=== PATIENT | female | born 1945 | race Hispanic/Latino ===

== ENCOUNTER 2023-12-24 06:25 | Inpatient (IN) | payer MEDICARE ==
[2023-12-19 10:42] VITALS: BMI 29.9
[2023-12-24] MEDS ORDERED: Lidocaine 4% Topical Sol 50 ML BOT ONE (09:32)
[2023-12-24] MEDS ORDERED: AFRIN NASAL MIST 15 ML BOT ONE (09:32)
[2023-12-24] MEDS ORDERED: fentaNYL 50 mcg/mL 1 mL Vial ONE ×2 (09:36→11:27)
[2023-12-24] MEDS ORDERED: Dexamethasone 20 MG/5 ML VIAL ONE (09:36)
[2023-12-24] MEDS ORDERED: Rocuronium Bromide 10 MG/ML (10ML VIAL) ONE (09:36)
[2023-12-24] MEDS ORDERED: SUGAMMADEX SODIUM 200 MG/2 ML VIAL ONE (09:36)
[2023-12-24] MEDS ORDERED: Lidocaine 1% PF 5 ML VIAL ONE (09:36)
[2023-12-24] MEDS ORDERED: PROPOFOL 20 ML ONE (09:36)
[2023-12-24] MEDS ORDERED: Ondansetron PF 4 MG/2 ML Vial ONE (09:36)
[2023-12-24] MEDS ORDERED: EPINEPHrine 1 MG/ML VIAL ONE (09:55)
[2023-12-24] MEDS ORDERED: Vasopressin 20 UNITS/ML VIAL ONE (10:09)
[2023-12-24] MEDS ORDERED: Triamcinolone 40 MG/ML VIAL ONE (10:24)
[2023-12-24] MEDS ORDERED: Insulin Regular, Human 100 UNIT/ML 10 ML VIAL ONE (12:09)
[2023-12-24] MEDS ORDERED: Acetaminophen 325 MG TAB PO PRN (13:30)
[2023-12-24] MEDS ORDERED: traMADol HCl 50 MG TAB PO PRN (13:30)
[2023-12-24] MEDS ORDERED: Ondansetron PF 4 MG/2 ML Vial IVP PRN (13:30)
[2023-12-24] MEDS ORDERED: Senokot S 8.6-50 MG TAB PO PRN (13:30)
[2023-12-24] MEDS ORDERED: Guaifenesin DM 100-10/5 ML UDCUP PO PRN (13:30)
[2023-12-24] MEDS ORDERED: Glucagon 1 MG/ML KIT IM PRN (13:32)
[2023-12-24] MEDS ORDERED: Dextrose 5% in Water 1,000 ML IV PRN (13:32)
[2023-12-24] MEDS ORDERED: Sodium Chloride 0.9% 500 ML IV SCH (13:45)
[2023-12-24] MEDS ORDERED: Ipratropium/Albuterol 3 ML NEB NEB PRN (13:48)
[2023-12-24] MEDS: Morphine 2 MG/ML VIAL SLOW IVP PRN (14:02)
[2023-12-24] MEDS: Insulin Regular, Human 100 UNIT/ML 10 ML VIAL SC PRN (17:36)
[2023-12-24] MEDS: Lantus 1000 UNITS/10 ML VIAL SC SCH (21:15)
[2023-12-24] MEDS: Simvastatin 10 MG TAB PO SCH (21:19)
[2023-12-24] MEDS: Famotidine 20 MG TAB PO SCH (21:19)
[2023-12-24] MEDS: metFORMIN 500 MG TAB PO SCH (21:20)
[2023-12-25 04:16] LABS: Anion Gap 19 mmol/L (10-20); BUN (Urea Nitrogen) 61 mg/dL (9.8-20.1); Calc. Creatinine Clearance 24 mL/min (70-130); Calcium 9.2 mg/dL (7.8-10.44); Carbon Dioxide 24 mmol/L (23-31); Chloride 95 mmol/L (98-107); Estimated GFR 23; Glucose 222 mg/dL (83-110); Potassium 4.7 mmol/L (3.5-5.1); Sodium 133 mmol/L (136-145)
[2023-12-25 04:20] LABS: Hematocrit 41.1 % (34.9-44.5); Hemoglobin 12.8 g/dL (12.0-15.5); MDiff Complete? YES; Mean Corpuscular HGB CONC 31.1 g/dL (32.0-36.0); Mean Corpuscular Hemoglobin 26.2 pg (27.0-33.0); Mean Corpuscular Volume 84.2 fL (81.6-98.3); Mean Platelet Volume 10.1 fL (7.4-10.4); Platelet Count 308 10x3/uL (150-450); RBC Distribution Width 18.2 % (11.5-14.5); Red Blood Cell (RBC) Count 4.88 10x6/uL (3.90-5.03); White Blood Cell (WBC) Count 21.5 10x3/uL (3.5-10.5)
[2023-12-25 05:40] LABS: Band 10 % (5-11); Lymphocytes 11 % (21-51); Monocytes 8 % (0-10); Neutrophil 71 % (42-75)
[2023-12-25 05:43] LABS: Anisocytosis SLIGHT = 6-15 cells (100X) (0-5/hpf); Platelet Adequacy Comment Appears Adequate
[2023-12-25] MEDS: Sodium Chloride 0.9% 1,000 ML IV SCH ×2 (07:30→10:02)
[2023-12-25] MEDS ORDERED: Spironolactone 25 MG TAB PO SCH (09:00)
[2023-12-25] MEDS ORDERED: Losartan 50 MG TAB PO SCH (09:00)
[2023-12-25] MEDS: Alogliptin 25 MG TAB PO SCH (09:01)
[2023-12-25] MEDS: Famotidine 20 MG TAB PO SCH (09:02)
[2023-12-25] MEDS: Escitalopram Oxalate 10 mg Tablet PO SCH (09:02)
[2023-12-25 13:52] LABS: Hemoglobin A1c 9.6 % (4.0-6.0)
[2023-12-25 17:27] LABS: Anion Gap 17 mmol/L (10-20); BUN (Urea Nitrogen) 75 mg/dL (9.8-20.1); Calc. Creatinine Clearance 24 mL/min (70-130); Calcium 8.7 mg/dL (7.8-10.44); Carbon Dioxide 24 mmol/L (23-31); Chloride 94 mmol/L (98-107); Estimated GFR 24; Glucose 344 mg/dL (83-110); Potassium 4.5 mmol/L (3.5-5.1); Sodium 130 mmol/L (136-145)
[2023-12-26 04:04] LABS: #Basophils 0.02 10x3/uL (0.0-0.2); #Monocytes 1.22 10x3/uL (0.0-1.1); #Neutrophils 11.72 10x3/uL (1.5-8.4); %Basophils 0.1 % (0.0-2.0); %Lymphocytes 8.1 % (18.0-47.0); %Monocytes 8.6 % (0.0-10.0); %Neutrophils 82.5 % (40.0-75.0); Hematocrit 37.9 % (34.9-44.5); Hemoglobin 11.7 g/dL (12.0-15.5); Mean Corpuscular HGB CONC 30.9 g/dL (32.0-36.0); Mean Corpuscular Hemoglobin 26.1 pg (27.0-33.0); Mean Corpuscular Volume 84.6 fL (81.6-98.3); Mean Platelet Volume 9.7 fL (7.4-10.4); Platelet Count 313 10x3/uL (150-450); Red Blood Cell (RBC) Count 4.48 10x6/uL (3.90-5.03); White Blood Cell (WBC) Count 14.2 10x3/uL (3.5-10.5)
[2023-12-26 04:35] LABS: ALT (SGPT) 50 U/L (8-55); AST (SGOT) 15 U/L (5-34); Albumin 2.4 g/dL (3.4-4.8); Alkaline Phosphatase 99 U/L (40-110); Anion Gap 13 mmol/L (10-20); BUN (Urea Nitrogen) 67 mg/dL (9.8-20.1); Bilirubin, Total 0.4 mg/dL (0.2-1.2); Calc. Creatinine Clearance 35 mL/min (70-130); Calcium 8.6 mg/dL (7.8-10.44); Carbon Dioxide 25 mmol/L (23-31); Chloride 102 mmol/L (98-107); Estimated GFR 37; Globulin 4.5 g/dL (2.4-3.5); Glucose 128 mg/dL (83-110); Potassium 4.2 mmol/L (3.5-5.1); Protein, Total 6.9 g/dL (5.8-8.1); Sodium 136 mmol/L (136-145)
[2023-12-26 11:28] LABS: Anion Gap 13 mmol/L (10-20); BUN (Urea Nitrogen) 58 mg/dL (9.8-20.1); Calc. Creatinine Clearance 41 mL/min (70-130); Calcium 8.9 mg/dL (7.8-10.44); Carbon Dioxide 27 mmol/L (23-31); Chloride 101 mmol/L (98-107); Estimated GFR 45; Glucose 103 mg/dL (83-110); Potassium 4.1 mmol/L (3.5-5.1); Sodium 137 mmol/L (136-145)
[2023-12-26] MEDS: Albumin 25% 25 GM (100 mL) BOT IVPB SCH (12:27)
[2023-12-27 03:32] VITALS: BP 160/73; TEMP 99.5
[2023-12-27 04:21] LABS: Anion Gap 15 mmol/L (10-20); BUN (Urea Nitrogen) 43 mg/dL (9.8-20.1); Calc. Creatinine Clearance 55 mL/min (70-130); Calcium 9.2 mg/dL (7.8-10.44); Carbon Dioxide 23 mmol/L (23-31); Chloride 105 mmol/L (98-107); Estimated GFR 64; Glucose 124 mg/dL (83-110); Potassium 4.3 mmol/L (3.5-5.1); Sodium 139 mmol/L (136-145)
[2023-12-27] MEDS: Furosemide 40 MG (4 mL) VIAL SLOW IVP SCH (08:00)
[2023-12-27] MEDS: Dextrose 50% Abboject 50 ML SYRINGE SLOW IVP PRN (08:03)
[2023-12-27 08:08] LABS: #Basophils 0.03 10x3/uL (0.0-0.2); #Eosinphils 0.12 10x3/uL (0.0-0.5); #Monocytes 2.39 10x3/uL (0.0-1.1); #Neutrophils 11.47 10x3/uL (1.5-8.4); %Basophils 0.2 % (0.0-2.0); %Eosinophils 0.7 % (0.0-6.0); %Lymphocytes 12.2 % (18.0-47.0); %Monocytes 14.9 % (0.0-10.0); %Neutrophils 71.3 % (40.0-75.0); Hematocrit 44.1 % (34.9-44.5); Hemoglobin 13.2 g/dL (12.0-15.5); Mean Corpuscular HGB CONC 29.9 g/dL (32.0-36.0); Mean Corpuscular Hemoglobin 26.1 pg (27.0-33.0); Mean Corpuscular Volume 87.2 fL (81.6-98.3); Mean Platelet Volume 8.9 fL (7.4-10.4); Platelet Count 329 10x3/uL (150-450); RBC Distribution Width 18.2 % (11.5-14.5); Red Blood Cell (RBC) Count 5.06 10x6/uL (3.90-5.03); White Blood Cell (WBC) Count 16.1 10x3/uL (3.5-10.5)
[2023-12-27] MEDS ORDERED: PROPOFOL 40 ML ONE (09:01)
[2023-12-27] MEDS ORDERED: EPINEPHrine 1 MG/ML VIAL ONE (09:28)
[2023-12-27] MEDS ORDERED: PHENYLEPHRINE-NS 100 MCG/ML 10 ML SYRINGE ONE (09:43)
[2023-12-27] MEDS: Furosemide 40 MG (4 mL) VIAL ONE (10:25)
[2023-12-27 10:29] LABS: ALV-art Gradient 75.375 mmHg (0-20); Actual Bicarbonate (HCO3a) 29.4 mEq/L (22-28); Analyzer IN Cardio CS ICU; Base Excess (BEa) 0.9 mEq/L (-2.0 to +3.0); CO2 Tension 64.5 mmHg (35.0-45.0); Carboxyhemoglobin (COHb) 0.8 gm% (0.0-3.0); Hematocrit-ABG 41 % (36.0-47.0); Hemoglobin (Hb) 13.9 g/dL (12.0-16.0); O2 Tension (PaO2), arterial 57.9 mmHg (> 70.0); Potassium - ABG Lab 4.26 mmol/L (3.70-5.30); Puncture Site Right Radial artery; pH, Arterial 7.276 (7.35-7.45)
== END 2023-12-27 10:59 | disposition still patient (30) | DRG 143 ==
LOC: CSHSDC 06:25 → CSHTELE 13:08 → OBSVTOIN 12-26 10:02
PROVIDERS: ADMIT Otolaryngology; ATTEND Family Medicine
PROC: 0CBS8ZZ Excision of Larynx, Via Natural or Artificial Opening Endoscopic (ICD-10-PCS; principal; 2023-12-24)
PROC: 0CTPXZZ Resection of Tonsils, External Approach (ICD-10-PCS; 2023-12-24)
PROC: 0C7S8ZZ Dilation of Larynx, Via Natural or Artificial Opening Endoscopic (ICD-10-PCS; 2023-12-24)
PROC: 3E0F83Z Introduction of Anti-inflammatory into Respiratory Tract, Via Natural or Artificial Opening Endoscopic (ICD-10-PCS; 2023-12-24)
PROC: 30233J1 Transfusion of Nonautologous Serum Albumin into Peripheral Vein, Percutaneous Approach (ICD-10-PCS; 2023-12-26)
PROC: 5A09357 Assistance with Respiratory Ventilation, Less than 24 Consecutive Hours, Continuous Positive Airway Pressure (ICD-10-PCS; 2023-12-26)
PROC: 0B21XFZ Change Tracheostomy Device in Trachea, External Approach (ICD-10-PCS; 2023-12-27)
PROC: 4A033R1 Measurement of Arterial Saturation, Peripheral, Percutaneous Approach (ICD-10-PCS; 2023-12-27)
PROC: 3E033XZ Introduction of Vasopressor into Peripheral Vein, Percutaneous Approach (ICD-10-PCS; 2023-12-27)
DX: J35.1 Hypertrophy of tonsils (principal); J96.01 Acute respiratory failure with hypoxia; J96.02 Acute respiratory failure with hypercapnia; N17.9 Acute kidney failure, unspecified; E78.5 Hyperlipidemia, unspecified; J38.6 Stenosis of larynx; E11.22 Type 2 diabetes mellitus with diabetic chronic kidney disease; N18.9 Chronic kidney disease, unspecified; I12.9 Hypertensive chronic kidney disease with stage 1 through stage 4 chronic kidney disease, or unspecified chronic kidney disease; Z93.0 Tracheostomy status; Z90.89 Acquired absence of other organs
CPT/HCPCS: 36415; 36416; 36600; 71045; 80048; 80053; 82805; 83036; 83605; 83735; 83880; 85025; 88304; 88305; 94640; 94660; 94760; 94762; C1726; J0171; J1100; J1815; J1940; J2272; J2405; J2704; J3010; J3301; J7030; J7999; P9047